=== PATIENT | male | born 1945 | race Caucasian/White ===

== ENCOUNTER → 2016-12-16 | Outpatient (CLI) | payer OTHER, MEDICARE | LOC: BHFA 09:15 | PROVIDERS: ATTEND Internal Medicine Cardiovascular Disease | DX: I25.10 Atherosclerotic heart disease of native coronary artery without angina pectoris (principal); I47.1 Supraventricular tachycardia; I48.91 Unspecified atrial fibrillation ==

== ENCOUNTER → 2017-11-28 | Outpatient (CLI) | payer OTHER, MEDICARE | LOC: BHFA 08:30 | PROVIDERS: ATTEND Internal Medicine Cardiovascular Disease | DX: I48.91 Unspecified atrial fibrillation (principal); I25.10 Atherosclerotic heart disease of native coronary artery without angina pectoris; I47.1 Supraventricular tachycardia ==

== ENCOUNTER 2018-01-18 12:30 | Emergency (ER) | payer OTHER, MEDICARE ==
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
[2018-01-18 16:08] VITALS: BP 138/84
== END 2018-01-18 16:07 | disposition home or self-care (01) ==
DX: H91.91 Unspecified hearing loss, right ear (principal); Z79.82 Long term (current) use of aspirin